=== PATIENT | female | born 1980 | race Caucasian/White ===

== ENCOUNTER → 2016-11-27 | Outpatient (CLI) | payer OTHER ==
[2015-02-06 14:30] VITALS: BP 141/90
[~2016-11-27] MED LIST: ALPR0.254 PO; BUDE10.2 IH; PROAIR HFA8.5 GM IH; VENL75CA6 PO
--- NOTE | 2016-11-27 10:20 | KCIC ---
Examination: Ultrasound abdomen limited HISTORY: History of right upper quadrant pain COMPARISON: None available FINDINGS: The liver measures 17.8 cm. There is increased echogenicity noted throughout the liver. The common bile duct is 4.2 mm in transverse dimension. The gallbladder wall thickness measures 1.8 mm. The pancreas is not well-visualized due to bowel gas. The right kidney measures 11.0 x 5.6 x 4.5 cm. The visualized aorta, IVC appear patent. There is increased echogenicity noted throughout the liver likely hepatic steatosis. There is a 5 mm echogenicity identified in the gallbladder abutting the gallbladder wall probably a polyp. There is a shadowing echogenicity identified within the gallbladder which appears mobile measuring 2.4 cm likely a gallstone. IMPRESSION: 1. Cholelithiasis. 2. 5 mm gallbladder polyp. 3. Mild hepatomegaly with hepatic steatosis. Electronically signed by: Jaxon Estrada MD (11/27/2016 10:17 AM) [id number]
== END | disposition home or self-care (01) ==
LOC: KCIC US 08:01
PROVIDERS: ATTEND Physician Assistant
DX: K80.20 Calculus of gallbladder without cholecystitis without obstruction (principal); K76.0 Fatty (change of) liver, not elsewhere classified
CPT/HCPCS: 76705

== ENCOUNTER → 2017-09-03 | Outpatient (CLI) | payer OTHER | END | disposition home or self-care (01) | LOC: KCIC 11:38 | DX: M79.671 Pain in right foot (principal) | CPT/HCPCS: 73630 ==

== ENCOUNTER → 2018-01-20 | Outpatient (CLI) | payer OTHER ==
[2016-12-18 11:33] VITALS: BP 109/59
[~2018-01-20] MED LIST changes: +ASPI1TAB31 PO; +NITR50CA PO; +OXYC1TAB15 PO; +TRAM50TA PO
--- NOTE | 2018-01-20 16:04 | KCIC ---
Left shoulder 3 views. HISTORY: Left shoulder pain, M 25.512 3 views were taken of the left shoulder. There is no fracture or dislocation or acute osseous abnormality. IMPRESSION: 1. Negative left shoulder. Electronically signed by: Kurt Shi MD (01/20/2018 4:01 PM) [id number]
== END | disposition home or self-care (01) ==
LOC: KCIC 08:36
PROVIDERS: ATTEND Family Medicine
DX: M25.512 Pain in left shoulder (principal)
CPT/HCPCS: 73030